=== PATIENT | female | born 1970 | race Caucasian/White ===

== ENCOUNTER 2019-05-24 04:53 | Emergency (ER) | payer BC ==
[~2019-05-24] VITALS: Ht 180.3 cm; Wt 76.2 kg
[2019-05-24] MEDS ORDERED: FLONASE 0.05%50 MCG NASAL (05:24)
[2019-05-24] MEDS ORDERED: ESTRADIOL 1 MG T1 M1 PO (05:25)
[2019-05-24] MEDS ORDERED: LEXAPRO 10 MG T10 M2 PO (05:26)
[2019-05-24 06:04] LABS: ANION GAP 6 mmol/L (7-16); BUN 24 mg/dL (7-18); CHLORIDE 104 mmol/L (98-107); CO2 29 mmol/L (21-32); CREATININE 0.8 mg/dL (0.6-1.0); GLUCOSE 82 mg/dL (74-106); POTASSIUM 4.1 mmol/L (3.5-5.1); SODIUM 139 mmol/L (136-145)
[2019-05-24 06:05] LABS: ABSOLUTE NEUTROPHILS 1.1 thou/uL (1.4-8.2); BASOPHILS 0.6 % (0.0-2.0); EOSINOPHILS 3.4 % (0.0-3.0); HEMATOCRIT 36.2 % (37.0-47.0); HEMOGLOBIN 12.2 gm/dL (12.0-15.0); LYMPHOCYTES 55.3 % (24.0-44.0); MCH 30.9 pg (26.0-34.0); MCHC 33.8 g/dL (28.0-37.0); MCV 91.4 fL (80.0-100.0); MONOCYTES 8.6 % (1.0-8.0); PLATELET COUNT 247 thou/uL (150-400); POLYS 32.1 % (36.0-66.0); RBC 3.96 mil/uL (4.20-5.00); RDW 12.9 % (10.5-14.5); WBC 3.3 thou/uL (4.0-11.0)
[2019-05-24] MEDS ORDERED: ANTIVERT25 MG PO ×2 (06:07→06:38)
[2019-05-24 06:14] LABS: MAGNESIUM 1.8 mg/dL (1.8-2.4); TROPONIN-I <0.06 ng/mL (<0.06)
[2019-05-24 07:05] VITALS: BP 96/58
--- NOTE | 2019-05-24 08:51 | EKG ---
[place] [address] [facility] [place] [address] ELECTROCARDIOGRAM REPORT Name: ALEXIS ALMEIDA Room #: [facility]#: [id number] ������������������ Admission: 05/24/19 ������������������ Attend Phys: Discharge: 05/24/19 ������������������ Date of : 72 Report #: [id number] ����������������������������������������������������������������� [id number] THIS REPORT FOR: //name// [facility] ED Test Date: 2019-05-24 Test Time: 05:27:02 Pat Name: ALEXIS ALMEIDA Department: Room: Gender: F Furniture Finisher: AMANDA : 1970 Requested By: Jose Zavaleta Order Number: [id number] MD: Rolando Santos Measurements Intervals [place] Rate: 48 P: 48 OK: 192 QRS: 87 QRSD: 99 T: 29 QT: 440 QTc: 394 Interpretive Statements Sinus bradycardia Otherwise normal tracing No previous ECG available for comparison Electronically Signed On 05-24-2019 8:51:14 CDT by Rolando Santos [email or web address] ��������������������������������������������� <ELECTRONICALLY SIGNED> ���������������������������������������� By: Rolando Santos MD, [facility] ��������������������������������������������� 05/24/19 0851 0527 0527 Rolando Santos MD, FACC /EPI
== END 2019-05-24 07:05 | disposition home or self-care (01) ==
LOC: ER 04:53
PROVIDERS: Emergency Medicine
DX: R42 Dizziness and giddiness (principal); Z79.899 Other long term (current) drug therapy

== ENCOUNTER 2020-03-12 17:21 | Emergency (ER) | payer BC ==
[~2020-03-12] VITALS: Ht 182.9 cm; Wt 75.3 kg
[~2020-03-12 17:21] MED LIST: ANTIVERT25 MG PO; ESTRADIOL 1 MG T1 M1 PO; FLONASE 0.05%50 MCG NASAL; LEXAPRO 10 MG T10 M2 PO
[2020-03-12 18:29] LABS: ABSOLUTE NEUTROPHILS 1.8 thou/uL (1.4-8.2); BASOPHILS 0.7 % (0.0-2.0); HEMATOCRIT 37.7 % (37.0-47.0); LYMPHOCYTES 41.3 % (24.0-44.0); MCH 32.3 pg (26.0-34.0); MCHC 34.5 g/dL (28.0-37.0); MCV 93.6 fL (80.0-100.0); MONOCYTES 8.2 % (1.0-8.0); PLATELET COUNT 237 thou/uL (150-400); POLYS 47.8 % (36.0-66.0); RBC 4.03 mil/uL (4.20-5.00); RDW 12.2 % (10.5-14.5); WBC 3.8 thou/uL (4.0-11.0)
[2020-03-12 18:36] LABS: ANION GAP 6 mmol/L (7-16); BUN 15 mg/dL (7-18); CALCIUM 8.1 mg/dL (8.5-10.1); CHLORIDE 104 mmol/L (98-107); CO2 30 mmol/L (21-32); CREATININE 0.9 mg/dL (0.6-1.0); GLUCOSE 81 mg/dL (74-106); POTASSIUM 3.5 mmol/L (3.5-5.1); SODIUM 140 mmol/L (136-145)
[2020-03-12 18:46] LABS: ALBUMIN 3.5 g/dL (3.4-5.0); SGOT 23 U/L (15-37); SGPT 23 U/L (30-65); TOTAL BILIRUBIN 1.5 mg/dL (<0.1-1.0); TOTAL PROTEIN 6.7 g/dL (6.4-8.2); TROPONIN-I <0.06 ng/mL (<0.06)
[2020-03-12] MEDS ORDERED: VALIUM5 MG PO (19:04)
[2020-03-12] MEDS ORDERED: MEDI-MECLIZINE25 MG PO (19:04)
[2020-03-12] MEDS ORDERED: ONDANSETRON HCL4 M2 PO (19:04)
[2020-03-12 20:05] VITALS: BP 107/63
== END 2020-03-12 20:07 | disposition home or self-care (01) ==
LOC: ER 17:21
PROVIDERS: Physician Assistant
DX: R42 Dizziness and giddiness (principal); R11.0 Nausea; R63.0 Anorexia; Z79.899 Other long term (current) drug therapy